=== PATIENT | male | born 1950 | race Caucasian/White ===

== ENCOUNTER 2018-06-17 07:00 | Outpatient (CLI) | payer OTHER, SELFPAY ==
[2018-06-17 07:57] LABS: Hemoglobin A1C 6.7 % (4.5-6.2)
== END 2018-06-17 07:20 ==
PROVIDERS: PCP General Practice; Visit Provider General Practice
DX: E11.9 Type 2 diabetes mellitus without complications (principal)
CPT/HCPCS: 36415; 83036

== ENCOUNTER 2019-05-12 02:38 | Outpatient (CLI) | payer OTHER, SELFPAY ==
[2019-05-12 07:47] LABS: Hemoglobin A1C 6.5 % (4.5-6.2)
[2019-05-12 08:17] LABS: CREATININE 1.87 mg/dL (0.70-1.30); Estimated GFR 36.19 (mL/min/1.73m2); Potassium 4.5 mmol/L (3.5-5.1)
[2019-05-12 08:29] LABS: COMMENT (LAB VIEW ONLY) 106.33 mg/dL
== END 2019-05-12 02:58 ==
PROVIDERS: PCP General Practice; Visit Provider General Practice
DX: E11.9 Type 2 diabetes mellitus without complications (principal)
CPT/HCPCS: 36415; 82043; 82565; 82570; 83036; 84132

== ENCOUNTER 2021-03-28 07:12 | Day surgery (SDC) | payer OTHER, SELFPAY ==
[2021-03-28 07:18] VITALS: BP 151/87; PULSE 87; RESP 17; TEMP 36.6; O2SAT 100
[2021-03-28] MEDS: Lactated Ringers 1,000 ML 80 ML IV (07:56)
[2021-03-28] MEDS: ceFAZolin 2,000 MG in Normal Saline 100 ML 200 MG IV (08:43)
[2021-03-28] MEDS: Bupivacaine 0.5% Pres-Free 30 ML VIAL (08:56)
--- NOTE | 2021-03-28 09:17 | BONE_PTH ---
PATIENT: Weston Mendez LOC: [facility] U#:[id number] AGE/SX: 70/M ROOM: RE03/28/[address]: Baldemar Phillips : 1950 BED: DIS: 03/28/2021 SPEC #: [id number] RECD: 03/28/21 12:21 STATUS: TYLER REQ #: [id number] GISEL: 03/28/21 09:[address]: Baldemar Phillips DEPT: Surgical Specimen RECD BY: Ania Corrigan ENTERED: 03/28/21 12:23 SP TYPE: Bone OTHR DR: Vijay Prather DO Tissues: 1 - BONE BX/CURRETTE NOT PATH FRACTURE Procedures: GROSS AND MICRO LEVEL 4 DECALCIFICATION Comments: [id number]
--- NOTE | 2021-03-28 09:36 | W.PM.DSUDISC ---
Discharge Plan Disposition Patient Disposition: HOME Condition: Good Discharge Details Reason For Visit: 5th metatarsal head resection debridement right Attending Provider: Baldemar Phillips Primary Care Provider: Vijay Prather Home Meds and New Rx's Prescriptions: New oxycodone-acetaminophen 5-325 mg tablet 1 tab PO Q6H PRN (Reason: pain) Qty: 9 RF: 0 ibuprofen 600 mg tablet 600 mg PO Q6H PRN (Reason: Pain and inflammation) Qty: 40 RF: 0 amoxicillin-pot clavulanate [Augmentin] 875-125 mg tablet 1 tab PO Q12H Qty: 20 RF: 0 Continued losartan 25 mg tablet 25 mg PO DAILY Qty: 90 RF: 3 Levemir FlexTouch U-100 Insuln 100 unit/mL (3 mL) insulin pen 30 unit subcut QHS Qty: 15 RF: 3 insulin lispro [Humalog KwikPen Insulin] 100 unit/mL insulin pen 12 unit subcut TID Qty: 15 RF: 3 aspirin [Aspir-81] 81 MG tablet,delayed release (DR/EC) 81 mg PO DAILY AM RF: 0 Discharge Instructions Activity:: Elevate Remove Dressings/Wound Care:: Do Not Remove Shower/Bathe:: Cover Diet:: Carb Counting Discharge Orders Discharge Orders: Discharge Order (Routine); Ordered 03/28/21 Ordered By: Baldemar Phillips DS: Diagnosis Discharge Diagnosis (1) Diabetic ulcer of foot associated with diabetes mellitus due to underlying condition, with bone involvement without evidence of necrosis: Status: Acute
--- NOTE | 2021-03-28 09:45 | ROE_ITS ---
Date of service: 03/28/21 Time of Service: 09:45 Operative Note Operative Note DATE OF PROCEDURE: 03/28/21 PRE-OP DIAGNOSIS: Diabetic ulcer right fifth metatarsal head region POST-OP DIAGNOSIS: same PROCEDURE: Resection right fifth metatarsal head, debridement diabetic ulcer SURGEON: Baldemar Phillips ANESTHESIA TYPE: Local By Surgeon Refer to Anesthesia Record ESTIMATED BLOOD LOSS: 5 TOURNIQUET TIME: 0 COMPLICATIONS: None Patient was transported to: same day Patient's condition: stable Indications: 70-year-old white male with worsening diabetic ulceration under the right fifth metatarsal head which has not responded to palliative treatments. He is being brought to the OR for surgical debridement of the diabetic wound and resection of the fifth metatarsal head. Risk and complications have been reviewed in detail. He understands potential risk and complications pertaining to pain, scarring, infection, failure to thrive, ongoing complications with diabetic wound potentially requiring revisional procedures. No promises have been made to final outcome of surgery. InFormed consent been obtained. Procedure Description: Weston was brought to the operative suite placed in the supine position with the right foot prepped and draped in the usual sterile podiatric anesthesia was obtained utilizing 10 cc of a 50: 50 mixture 1% lidocaine with epinephrine, 0.5% Marcaine plain. Betadine prep was performed. 2 g of Ancef were infused preoperatively by protocol. Timeout was performed for safe surgery. Attention was directed to the medial aspect of the right foot with a 3 cm incision was placed over the lateral side of the fifth MPJ. The incision was deepened with a #15 scalpel with hemostasis being acquired with electrocautery. Dissection was carried down to the joint capsule. No purulence was identified in the deep tissue layers at this point. The joint capsule was incised laterally and dissected off of the underlying bone. The fifth metatarsal phalangeal joint was evaluated. The cartilage appeared somewhat degenerated but otherwise healthy. There was no sign of infection at the bone level. With power instrumentation the head of the metatarsal was resected at its surgical neck. All rough and bony edges were rasped smooth. Cultures were obtained of the exposed bone base aerobic and anaerobic specimens. The bone itself was sent to pathology. The finger palpation revealed good resection of bone in regards to the plantar ulceration. The wound was copiously irrigated with normal saline and the joint capsule repaired with simple interrupted suture 3-0 Vicryl. Skin was then closed with simple interrupted suture 4-0 nylon. Attention was now directed to the plantar ulceration which was near full- thickness. With a round sure the margin of the wound was scalloped and the base of the wound gently debrided. Good bleeding was noted around the wound margins. The plantar wound was washed with normal saline and both wounds were then dressed with Xeroform fluffs Kerlix roll, stockinette and Colin wrap. Weston left the OR with vital signs stable vascular status intact. Sharp and sponge counts were correct. He will be followed by myself in the office next week.
[2021-03-28 09:48] VITALS: BP 177/98; PULSE 80; RESP 18; TEMP 36.2; O2SAT 100
== END 2021-03-28 10:05 | disposition home or self-care (01) ==
PROVIDERS: PCP Family Medicine; Visit Provider Podiatrist
PROC: (CPT 28288; principal; 2021-03-28 09:00)
DX: E11.621 Type 2 diabetes mellitus with foot ulcer (principal); L97.506 Non-pressure chronic ulcer of other part of unspecified foot with bone involvement without evidence of necrosis
CPT/HCPCS: 28104; 97597; 87077; 88305; 87070; 87075; 87186; 87205; 88304; 88311; J0690

== ENCOUNTER 2021-04-08 15:44 | Outpatient (REF) | payer OTHER, SELFPAY | END 2021-04-08 15:45 | disposition home or self-care (01) | LOC: LBN 15:44 | PROVIDERS: PCP Family Medicine; Visit Provider Podiatrist | DX: E11.621 Type 2 diabetes mellitus with foot ulcer (principal); L97.516 Non-pressure chronic ulcer of other part of right foot with bone involvement without evidence of necrosis | CPT/HCPCS: 87077; 87070; 87186; 87205 ==

== ENCOUNTER 2023-05-28 02:31 | Outpatient (CLI) | payer MEDICARE, SELFPAY ==
[2023-05-28 13:05] LABS: Anion Gap 8.3 mmol/L (3-11); BUN 31 mg/dL (7-18); CO2 28.7 mmol/L (21.0-32.0); CREATININE 1.9 mg/dL (0.70-1.30); Calcium 9.5 mg/dL (8.5-10.1); Chloride 105 mmol/L (98-107); Estimated GFR 37.25 (mL/min/1.73m2); Glucose 92 mg/dL (74-106); Potassium 4.4 mmol/L (3.5-5.1); Sodium 142 mmol/L (136-145)
== END 2023-05-28 02:32 | disposition home or self-care (01) ==
PROVIDERS: PCP Family Medicine; Visit Provider Family Medicine
DX: N18.32 Chronic kidney disease, stage 3b (principal)
CPT/HCPCS: 36415; 80048

== ENCOUNTER 2024-05-25 04:01 | Outpatient (CLI) | payer MEDICARE, SELFPAY ==
[2024-05-25 10:47] LABS: Anion Gap 6.2 mmol/L (3-11); BUN 31 mg/dL (7-18); CO2 29.8 mmol/L (21.0-32.0); CREATININE 2.3 mg/dL (0.70-1.30); Calcium 9.2 mg/dL (8.5-10.1); Chloride 108 mmol/L (98-107); Estimated GFR 29.43 (mL/min/1.73m2); Glucose 186 mg/dL (74-106); Potassium 4.6 mmol/L (3.5-5.1); Sodium 144 mmol/L (136-145)
== END 2024-05-25 04:02 | disposition home or self-care (01) ==
LOC: LBO 04:01
PROVIDERS: PCP Family Medicine; Visit Provider Family Medicine
DX: N18.32 Chronic kidney disease, stage 3b (principal)
CPT/HCPCS: 36415; 80048

== ENCOUNTER 2025-06-11 03:20 | Outpatient (CLI) | payer MEDICARE, SELFPAY ==
[2025-06-11 08:08] LABS: Anion Gap 6.6 mmol/L (3-11); BUN 40 mg/dL (7-18); CO2 29.4 mmol/L (21.0-32.0); Calcium 8.6 mg/dL (8.5-10.1); Chloride 104 mmol/L (98-107); Glucose 163 mg/dL (74-106); Potassium 4.6 mmol/L (3.5-5.1); Sodium 140 mmol/L (136-145)
[2025-06-11 08:14] LABS: Hemoglobin A1C 6.4 % (<5.7)
== END 2025-06-11 03:21 | disposition home or self-care (01) ==
LOC: LBO 03:21
PROVIDERS: Absent Provider Family Medicine; PCP Family Medicine; Referring Provider Family Medicine; Visit Provider Family Medicine
DX: E10.51 Type 1 diabetes mellitus with diabetic peripheral angiopathy without gangrene (principal); N18.32 Chronic kidney disease, stage 3b
CPT/HCPCS: 36415; 80048; 83036